=== PATIENT | female | born 1985 | race Caucasian/White ===

== ENCOUNTER → 2016-09-07 | Outpatient (CLI) | payer OTHER ==
--- NOTE | ~2016-09-07 | O ---
[facility] [place] [address] OPERATIVE REPORT Name: KHARI ANDERSON Room #: [facility].#: [id number] Admission: 09/07/16 Attend Phys: Harrison Pearce MD Discharge: Date of : 83 Report #: [id number] THIS REPORT FOR: //name// CC: Ten Schulte DO Harrison Pearce CLINICAL HISTORY: A 31-year-old white female with persistent severe paroxysmal cough. Diagnostic bronchoscopy was performed to rule out endobronchial pathology. POSTOPERATIVE DIAGNOSES: 1. Normal airways. 2. The patient was quite sensitive around the vocal cord area, inducing cough. Vocal cord itself appeared normal. DESCRIPTION OF PROCEDURE: Following obtained consent and risks and benefits been explained to the patient, which included infection, bleeding and pneumothorax, procedure performed in the endoscopy suite. The patient was given nebulized lidocaine at 4%, 2% and 1% to the upper airways. She is also received total 6 mg of Versed along with 50 mcg of fentanyl. Last dose of sedation was given at 08:25 a.m. The flexible fiberoptic bronchoscope was then introduced to the left naris without difficulty. The epiglottis was normal. Vocal cords were normal. Trachea was normal, león was normal. Right main stem bronchus, right upper lobe, right middle lobe and right lower lobe were normal. Left main stem bronchus, left upper lobe and left lower lobe were normal. Bronchoalveolar lavage was performed in the right lower lobe along with superior segment of the lingula. The rest of the airways appeared normal, with normal-appearing mucosa. She appears to be quite sensitive at the vocal cord area, resulting in cough. Otherwise, the patient tolerated the procedure well. Vital signs and saturation throughout the study were within normal range. The bronchoalveolar lavage specimen will be sent for microbiology studies. The findings were also discussed with the patient's parents. They informed me that the patient is undergoing tremendous amount of stress, especially at work. Her boss has been quite commanding of her at the [employer]. She also has a history of fibromyalgia. She has had approximately 8 abdominal surgeries for her endometriosis. Currently, undergoing treatment with pain management for chronic lower abdominal pain. She had been on narcotics. [facility] [address] [place] [address] OPERATIVE REPORT Name: KHARI ANDERSON Room #: [facility].#: [id number] Admission: 09/07/16 Attend Phys: Harrison Paerce MD Discharge: Date of : 83 Report #: [id number] Given the circumstances, I discussed with the parents that because I am not finding significant pulmonary pathology as a cause for her cough, I have told them that perhaps stress may be the primary cause for the patient's persistent cough. I recommended perhaps consultation with psychologist or psychiatry for further evaluation. The patient will be seen in followup approximately 1-2 weeks in the office. By: 0925 Chris Pearce MD /susana
== END | disposition home or self-care (01) ==
LOC: CATH 07:01
DX: R05 Cough (principal); R10.9 Unspecified abdominal pain; M79.7 Fibromyalgia